=== PATIENT | male | born 1955 | race Asian ===

== ENCOUNTER 2021-05-08 10:17 | Outpatient (CLI) | payer OTHER | END 2021-05-08 18:48 | disposition home or self-care (01) | LOC: RAD 10:17 | PROVIDERS: ATTEND Internal Medicine Pulmonary Disease | DX: J44.9 Chronic obstructive pulmonary disease, unspecified (principal) ==

== ENCOUNTER 2021-05-28 13:48 | Outpatient (CLI) | payer OTHER | END 2021-05-28 19:02 | disposition home or self-care (01) | LOC: CT 13:48 | PROVIDERS: ATTEND Internal Medicine Sleep Medicine | DX: J43.2 Centrilobular emphysema (principal) ==